=== PATIENT | male | born 1995 | race Caucasian/White ===

== ENCOUNTER 2021-06-13 07:53 | Day surgery (SDC) | payer OTHER ==
[~2021-06-13] VITALS: Ht 172.7 cm; Wt 99.8 kg
[~2021-06-13 07:53] MED LIST: ALL DAY10 MG PO; CONCERTA54 MG PO; DOXEPIN HCL10 MG PO; FLONASE AL50 MCG/ACT; LAMICTAL150 M1 PO; LOREEV XR1 MG; OMEPRAZOLE DR40 MG; QUETIAPINE FUM200 M1
[2021-06-13 11:05] VITALS: BP 116/76
== END 2021-06-13 10:52 | disposition home or self-care (01) ==
LOC: ENDO 07:53 → ORM 09:30 → ENDO 09:30
PROVIDERS: ATTEND Surgery
DX: K52.9 Noninfective gastroenteritis and colitis, unspecified (principal); F31.9 Bipolar disorder, unspecified; F41.8 Other specified anxiety disorders; Z86.19 Personal history of other infectious and parasitic diseases